=== PATIENT | female | born 1970 | race Caucasian/White ===

== ENCOUNTER 2017-01-17 20:40 | Emergency (ER) | payer OTHER ==
[~2017-01-17] VITALS: Ht 165.1 cm; Wt 88.5 kg
[~2017-01-17 20:40] MED LIST: AMLO10TA4 PO; ATEN50TA PO; INSU100V7; MEDR10TA PO; MONT10TA22 PO; PANT40TA4 PO; [UNRECOGNIZED DRUG - REMARK] PO
--- NOTE | 2017-01-17 21:35 | NUR ---
Patient discharged to home in stable conditon. Written and verbal after care instructions given. Patient verbalizes understanding of instructions.
== END 2017-01-17 21:36 | disposition home or self-care (01) ==
LOC: ER 20:43
DX: J32.9 Chronic sinusitis, unspecified (principal); J40 Bronchitis, not specified as acute or chronic; J45.909 Unspecified asthma, uncomplicated; I10 Essential (primary) hypertension; K21.9 Gastro-esophageal reflux disease without esophagitis; F41.9 Anxiety disorder, unspecified; E78.5 Hyperlipidemia, unspecified; F17.200 Nicotine dependence, unspecified, uncomplicated; E11.9 Type 2 diabetes mellitus without complications; Z88.6 Allergy status to analgesic agent; Z88.1 Allergy status to other antibiotic agents; Z79.4 Long term (current) use of insulin
CPT/HCPCS: 99283; A4663

== ENCOUNTER 2017-01-19 16:37 | Emergency (ER) | payer OTHER ==
[~2017-01-19] VITALS: Ht 165.1 cm; Wt 88.5 kg
[2017-01-19 17:08] LABS: *BLOOD, URINE 3+ (NEGATIVE); *COLOR,URINE AMBER (YELLOW); *KETONES,URINE NEGATIVE (NEGATIVE); *PROTEIN,URINE 1+ (NEGATIVE); *UROBILINOGEN,URINE 0.2 E.U./dl (NORMAL); LEUKOCYTE ESTERASE ,URINE NEGATIVE (NEGATIVE); NITRITE, URINE NEGATIVE (NEGATIVE); PH,URINE 5.5 (5.0-8.0); UGLUCOSE NEGATIVE (NEGATIVE)
[2017-01-19 17:21] LABS: *BILIRUBIN,URIN NEGATIVE (NEGATIVE); *CLARITY,URINE CLOUDY (CLEAR)
[2017-01-19 17:22] LABS: MUCUS,URINE MODERATE /LPF (0-FEW); RBC,URINE 80-100 /HPF (0-3); SQUAMOUS EPITHELIAL CELL,UR FEW /HPF (NONE SEEN)
--- NOTE | 2017-01-19 19:04 | NUR ---
SBAR REPORT TO PM SHIFT
[2017-01-19 19:32] LABS: BASOPHILS % (AUTO) 0.6 % (0.0-2.0); CALCIUM 8.1 mg/dL (8.5-10.1); EOSINOPHILS # (AUTO) 0.1 K/uL (0.0-0.7); EOSINOPHILS % (AUTO) 3.6 % (0.0-7.0); HEMOGLOBIN 12.1 g/dL (12.0-16.0); LYMPHOCYTES % (AUTO) 26.9 % (20.5-51.5); MEAN CORPUSCULAR HEMOGLOBIN 26.6 uug (27.0-31.0); MEAN CORPUSCULAR HGB CONC 34 g/dL (32.0-37.0); MEAN CORPUSCULAR VOLUME 79.4 fL (81.0-99.0); MONOCYTES # (AUTO) 0.3 K/uL (0.1-1.30); MONOCYTES % (AUTO) 8.8 % (0.0-11.0); NEUTROPHILS # (AUTO) 2.4 K/uL (1.8-8.9); NEUTROPHILS % (AUTO) 60.1 % (38.5-71.5); PLATELET COUNT (AUTO) 149 K/uL (150-450); POTASSIUM 3.8 mmol/L (3.5-5.1); RED BLOOD CELL COUNT(AUTO) 4.54 MIL/uL (4.20-5.40); WHITE BLOOD COUNT (AUTO) 3.8 K/uL (4.0-11.2)
--- NOTE | 2017-01-19 20:05 | NUR ---
Patient discharged to home in stable conditon. Written and verbal after care instructions provided, however patient refused written instructions of diagnosis. Patient verbalizes understanding of instructions. Perscription given to patient. Left unit at 2005
[2017-01-19 20:25] VITALS: BP 120/77
== END 2017-01-19 20:27 | disposition home or self-care (01) ==
LOC: ER 16:37
DX: N39.0 Urinary tract infection, site not specified (principal); J45.909 Unspecified asthma, uncomplicated; K21.9 Gastro-esophageal reflux disease without esophagitis; F41.9 Anxiety disorder, unspecified; E11.9 Type 2 diabetes mellitus without complications; E78.5 Hyperlipidemia, unspecified; I10 Essential (primary) hypertension; F17.200 Nicotine dependence, unspecified, uncomplicated; Z79.4 Long term (current) use of insulin; Z88.6 Allergy status to analgesic agent; Z88.1 Allergy status to other antibiotic agents
CPT/HCPCS: 36415; 85025; A4663

== ENCOUNTER 2017-04-21 17:02 | Emergency (ER) | payer OTHER ==
[~2017-04-21] VITALS: Ht 165.1 cm; Wt 90.7 kg
--- NOTE | 2017-04-21 18:36 | NUR ---
MD WALL AT BEDSIDE PERFORMING MSE.
--- NOTE | 2017-04-21 18:40 | NUR ---
Pt d/c br Dr. Bruno with verbal ACI.
== END 2017-04-21 18:41 | disposition home or self-care (01) ==
LOC: ER 17:08
DX: J32.9 Chronic sinusitis, unspecified (principal); R51 Headache; J45.909 Unspecified asthma, uncomplicated; E78.5 Hyperlipidemia, unspecified; K21.9 Gastro-esophageal reflux disease without esophagitis; E11.9 Type 2 diabetes mellitus without complications; I10 Essential (primary) hypertension; F41.9 Anxiety disorder, unspecified; Z90.49 Acquired absence of other specified parts of digestive tract; Z88.6 Allergy status to analgesic agent; Z88.1 Allergy status to other antibiotic agents; Z79.4 Long term (current) use of insulin
CPT/HCPCS: 99281; A4663

== ENCOUNTER 2017-05-07 15:12 | Emergency (ER) | payer OTHER ==
[~2017-05-07] VITALS: Ht 167.6 cm; Wt 90.7 kg
--- NOTE | 2017-05-07 15:34 | NUR ---
MED LIST REVIEWED WITH PATIENT. STATES SHE CANNOT RECALL DIABETIC MEDICATION AT THIS TIME, KNOWS THAT LANTUS HAD BEEN DISCONTINUED. PT STILL ALSO CANNOT REMEMBER HER PRN HEADACHE MEDICATION.
--- NOTE | 2017-05-07 16:21 | NUR ---
Patient discharged to home in stable conditon. Written and verbal after care instructions given. Patient verbalizes understanding of instructions.PT WALKS IN STEADY GAIT. NO SIGN OF DISTRESS.
[2017-05-07 16:22] VITALS: BP 110/75
== END 2017-05-07 16:25 | disposition home or self-care (01) ==
LOC: ER 15:12
DX: L55.0 Sunburn of first degree (principal); F41.9 Anxiety disorder, unspecified; E78.5 Hyperlipidemia, unspecified; I10 Essential (primary) hypertension; J45.909 Unspecified asthma, uncomplicated; E11.9 Type 2 diabetes mellitus without complications; F17.200 Nicotine dependence, unspecified, uncomplicated; K21.9 Gastro-esophageal reflux disease without esophagitis; Z90.49 Acquired absence of other specified parts of digestive tract; Z79.4 Long term (current) use of insulin; Z88.1 Allergy status to other antibiotic agents; Z88.6 Allergy status to analgesic agent
CPT/HCPCS: A4663

== ENCOUNTER 2017-05-19 20:44 | Emergency (ER) | payer OTHER ==
[~2017-05-19] VITALS: Ht 165.1 cm; Wt 92.5 kg
[~2017-05-19 20:44] MED LIST changes: -INSU100V7
[2017-05-19 21:55] LABS: *BILIRUBIN,URIN NEGATIVE (NEGATIVE); *BLOOD, URINE NEGATIVE (NEGATIVE); *COLOR,URINE YELLOW (YELLOW); *KETONES,URINE NEGATIVE (NEGATIVE); *PROTEIN,URINE NEGATIVE (NEGATIVE); NITRITE, URINE NEGATIVE (NEGATIVE); UGLUCOSE NEGATIVE (NEGATIVE)
[2017-05-19 22:02] LABS: *CLARITY,URINE SLIGHTLY HAZY (CLEAR); LEUKOCYTE ESTERASE ,URINE TRACE (NEGATIVE); RBC,URINE 0-3 /HPF (0-3)
[2017-05-19 22:03] LABS: BACTERIA,URINE FEW /HPF (NONE SEEN); SQUAMOUS EPITHELIAL CELL,UR MODERATE /HPF (NONE SEEN)
[2017-05-19 22:08] LABS: *URINE HCG, QUAL NEGATIVE (NEGATIVE)
[2017-05-19] MEDS ORDERED: NEOMY/BACITRA/POLYMYXIN B OINT UD PACKET TP ONE (23:45)
[2017-05-20 00:04] LABS: BILIRUBIN,DIRECT 0.1 mg/dL (0.0-0.2); BILIRUBIN,TOTAL 0.3 mg/dL (0.2-1.0); TOTAL PROTEIN, SERUM 7.3 g/dL (6.4-8.2)
[2017-05-20] MEDS ORDERED: NEOMY/BACITRA/POLYMYXIN B OINT UD PACKET TP ONE (00:15)
--- NOTE | 2017-05-20 00:44 | NUR ---
Patient discharged to home in stable conditon. Written and verbal after care instructions given. Patient verbalizes understanding of instructions.
== END 2017-05-20 00:46 | disposition home or self-care (01) ==
LOC: ER 20:44
DX: S09.90XA Unspecified injury of head, initial encounter (principal); M54.30 Sciatica, unspecified side; K59.00 Constipation, unspecified; I10 Essential (primary) hypertension; K21.9 Gastro-esophageal reflux disease without esophagitis; J45.909 Unspecified asthma, uncomplicated; F43.10 Post-traumatic stress disorder, unspecified; G89.29 Other chronic pain; M54.9 Dorsalgia, unspecified; N83.209 Unspecified ovarian cyst, unspecified side; Z90.49 Acquired absence of other specified parts of digestive tract; E11.9 Type 2 diabetes mellitus without complications; Z88.1 Allergy status to other antibiotic agents; Z88.6 Allergy status to analgesic agent; W22.8XXA Striking against or struck by other objects, initial encounter; Y93.89 Activity, other specified; Y92.9 Unspecified place or not applicable; Y99.9 Unspecified external cause status
CPT/HCPCS: 36415; 70450; 84703; A4663

== ENCOUNTER 2017-06-13 20:25 | Emergency (ER) | payer OTHER ==
[~2017-06-13] VITALS: Ht 165.1 cm; Wt 90.7 kg
[2017-06-13] MEDS ORDERED: FLUCONAZOLE 100 MG TABLET PO ONE (23:00)
--- NOTE | 2017-06-13 23:09 | NUR ---
Patient discharged to home in stable conditon. Written and verbal after care instructions given. Patient verbalizes understanding of instructions.
[2017-06-13] MEDS ORDERED: FLUCONAZOLE 100 MG TABLET ONE (23:18)
== END 2017-06-13 23:12 | disposition home or self-care (01) ==
LOC: ER 20:26
DX: M25.561 Pain in right knee (principal); I10 Essential (primary) hypertension; E11.9 Type 2 diabetes mellitus without complications; K21.9 Gastro-esophageal reflux disease without esophagitis; J45.909 Unspecified asthma, uncomplicated; G89.29 Other chronic pain; F43.10 Post-traumatic stress disorder, unspecified; F17.200 Nicotine dependence, unspecified, uncomplicated; Z88.1 Allergy status to other antibiotic agents; Z88.6 Allergy status to analgesic agent; Z90.49 Acquired absence of other specified parts of digestive tract; G43.909 Migraine, unspecified, not intractable, without status migrainosus
CPT/HCPCS: A4663

== ENCOUNTER 2017-07-25 16:04 | Emergency (ER) | payer OTHER ==
[~2017-07-25] VITALS: Ht 167.6 cm; Wt 92.1 kg
--- NOTE | 2017-07-25 17:31 | NUR ---
Pt c/o pain from uterine cysts, right knee injury, and CYR, all 10/10. Pt denies CP, SOB, dizziness, n/v, no other complaints, no distress noted.
--- NOTE | 2017-07-25 17:50 | NUR ---
Was giving pt RX and d/c instructions, pt became upset, refused RX and d/c paperwork and refused to sign.
== END 2017-07-25 17:50 | disposition home or self-care (01) ==
LOC: ER 16:07
DX: G89.29 Other chronic pain (principal); M25.561 Pain in right knee; I10 Essential (primary) hypertension; E11.9 Type 2 diabetes mellitus without complications; K21.9 Gastro-esophageal reflux disease without esophagitis; J45.909 Unspecified asthma, uncomplicated; F17.200 Nicotine dependence, unspecified, uncomplicated; D25.9 Leiomyoma of uterus, unspecified; N93.8 Other specified abnormal uterine and vaginal bleeding
CPT/HCPCS: A4663

== ENCOUNTER 2018-04-07 01:02 | Emergency (ER) | payer OTHER ==
[~2018-04-07] VITALS: Ht 167.6 cm; Wt 92.5 kg
--- NOTE | 2018-04-07 01:58 | NUR ---
DR JANET PERALTA MD AT BEDSIDE FOR MSE.
[2018-04-07] MEDS ORDERED: LIDOCAINE HCL 1% 20 ML VIAL IJ ONE (02:00)
[2018-04-07] MEDS ORDERED: NEOMY/BACITRA/POLYMYXIN B OINT UD PACKET TP ONE ×2 (02:27→02:30)
[2018-04-07] MEDS ORDERED: SULFAMETH/TRIMETH 800/160 MG TABLET PO ONE (02:30)
[2018-04-07] MEDS ORDERED: SULFAMETH/TRIMETH 800/160 MG TABLET ONE (02:48)
--- NOTE | 2018-04-07 02:53 | NUR ---
Patient discharged to home in stable conditon. Written and verbal after care instructions given. Patient verbalizes understanding of instructions. Pt accompanied by . No distress noted. Pt took all personal belongings.
[2018-04-07 02:54] VITALS: BP 124/72
== END 2018-04-07 02:54 | disposition home or self-care (01) ==
LOC: ER 01:06
DX: K65.1 Peritoneal abscess (principal); I10 Essential (primary) hypertension; J45.909 Unspecified asthma, uncomplicated; K21.9 Gastro-esophageal reflux disease without esophagitis; F17.210 Nicotine dependence, cigarettes, uncomplicated; Z88.1 Allergy status to other antibiotic agents; Z88.5 Allergy status to narcotic agent; Z79.899 Other long term (current) drug therapy
CPT/HCPCS: 10060; 99283; A4663; J3490

== ENCOUNTER 2018-05-14 16:15 | Emergency (ER) | payer OTHER ==
[~2018-05-14] VITALS: Ht 167.6 cm; Wt 93.4 kg
== END 2018-05-14 17:00 | disposition home or self-care (01) ==
LOC: ER 16:15
DX: S70.362A Insect bite (nonvenomous), left thigh, initial encounter (principal); S30.861A Insect bite (nonvenomous) of abdominal wall, initial encounter; N76.4 Abscess of vulva; I10 Essential (primary) hypertension; J45.909 Unspecified asthma, uncomplicated; K21.9 Gastro-esophageal reflux disease without esophagitis; F17.200 Nicotine dependence, unspecified, uncomplicated; Z90.89 Acquired absence of other organs; Z88.1 Allergy status to other antibiotic agents; Z88.5 Allergy status to narcotic agent; W57.XXXA Bitten or stung by nonvenomous insect and other nonvenomous arthropods, initial encounter; Y93.89 Activity, other specified; Y92.89 Other specified places as the place of occurrence of the external cause; Y99.8 Other external cause status
CPT/HCPCS: A4663

== ENCOUNTER 2018-08-04 19:15 | Emergency (ER) | payer OTHER ==
[~2018-08-04] VITALS: Ht 165.1 cm; Wt 92.5 kg
[2018-08-04] MEDS ORDERED: [UNRECOGNIZED DRUG - SUPPLY] (19:29)
[2018-08-04] MEDS ORDERED: ONDANSETRON HCL 4 MG TABLET PO (19:29)
[2018-08-04] MEDS ORDERED: HYDROCODONE-ACETAMIN 10-325 MG PO (19:29)
[2018-08-04] MEDS ORDERED: KETOCONAZOLE 2% SHAMPOO (19:29)
[2018-08-04] MEDS ORDERED: INSULIN ISOPHANE 100 UNIT/ML (19:29)
--- NOTE | 2018-08-04 19:34 | NUR ---
DR. CAITLIN PERALTA MD AT BEDSIDE FOR MSE.
[2018-08-04 20:25] LABS: BASOPHILS # (AUTO) 0.1 K/uL (0.0-8.0); EOSINOPHILS # (AUTO) 0.2 K/uL (0.0-0.7); EOSINOPHILS % (AUTO) 2.4 % (0.0-7.0); HEMATOCRIT 37.6 % (31.2-41.9); HEMOGLOBIN 12.4 g/dL (10.9-14.3); LYMPHOCYTES # (AUTO) 1.7 K/uL (20.0-40.0); LYMPHOCYTES % (AUTO) 21.5 % (20.5-51.5); MEAN CORPUSCULAR HEMOGLOBIN 28.3 uug (24.7-32.8); MEAN CORPUSCULAR HGB CONC 33 g/dL (32.3-35.6); MONOCYTES # (AUTO) 0.5 K/uL (2.0-10.0); MONOCYTES % (AUTO) 6.5 % (0.0-11.0); NEUTROPHILS # (AUTO) 5.5 K/uL (1.8-8.9); NEUTROPHILS % (AUTO) 68.6 % (38.5-71.5); PLATELET COUNT (AUTO) 183 K/uL (179-408); RED BLOOD CELL COUNT(AUTO) 4.37 MIL/uL (3.63-4.92); WHITE BLOOD COUNT (AUTO) 8.1 K/uL (3.8-11.8)
[2018-08-04 20:35] LABS: BILIRUBIN,DIRECT 0.1 mg/dL (0.0-0.2); BILIRUBIN,TOTAL 0.4 mg/dL (0.2-1.0); CREATININE 0.8 mg/dL (0.6-1.3); POTASSIUM 4.2 mmol/L (3.5-5.1)
--- NOTE | 2018-08-04 21:01 | NUR ---
PT WENT DOWN TO RADIOLOGY DEPT FOR CT SCAN.
[2018-08-04 21:04] LABS: *BILIRUBIN,URIN NEGATIVE (NEGATIVE); *BLOOD, URINE Trace-intact (NEGATIVE); *COLOR,URINE YELLOW (YELLOW); *KETONES,URINE NEGATIVE (NEGATIVE); *PROTEIN,URINE NEGATIVE (NEGATIVE); LEUKOCYTE ESTERASE ,URINE NEGATIVE (NEGATIVE); NITRITE, URINE NEGATIVE (NEGATIVE); UGLUCOSE 1+ (NEGATIVE)
[2018-08-04 21:11] LABS: *CLARITY,URINE HAZY (CLEAR)
[2018-08-04] MEDS ORDERED: NORMAL SALINE FLUSH 10 ML DISP.SYRIN ONE (21:11)
[2018-08-04] MEDS ORDERED: IV NORMAL SALINE 250 ML IV ONE (21:11)
[2018-08-04] MEDS ORDERED: SWABABLE VALVE TRANSFER SET EA MC ONE (21:11)
[2018-08-04] MEDS ORDERED: IOHEXOL 300MG/ML 100 ML INFUS..BTL ONE (21:11)
[2018-08-04 21:14] LABS: SQUAMOUS EPITHELIAL CELL,UR MODERATE /HPF (NONE SEEN); WBC,URINE 0-3 /HPF (0-3)
[2018-08-04 21:15] LABS: MUCUS,URINE MODERATE /LPF (0-FEW); URINE AMORPHOUS PHOSPHATES MODERATE /HPF
--- NOTE | 2018-08-04 21:34 | NUR ---
PT BACK FROM CT SCAN. NAD NOTED.
[2018-08-04] MEDS ORDERED: FLUCONAZOLE 100 MG TABLET PO ONE (22:00)
[2018-08-04] MEDS ORDERED: FLUCONAZOLE 100 MG TABLET ONE (22:07)
--- NOTE | 2018-08-04 22:15 | NUR ---
DR. CAITLIN PERALTA MD AT BEDSIDE FOR UPDATE.
[2018-08-04] MEDS ORDERED: PIPERACILLIN/TAZOBACTAM/D5W 50 ML IV ONE (22:20)
[2018-08-04] MEDS ORDERED: PIPERACILLIN SODIUM/TAZOBACTAM 3.375 G in IV DEXTROSE 5% 50 ML IV ONE (22:30)
--- NOTE | 2018-08-04 23:02 | NUR ---
Patient does not wish to proceed with medical care recommended by Dr. Arizmendi. Patient given information related to possible complications, up to and including , which could occur as a result of leaving the hospital at this time. Patient verbalizes understanding of risks involved due to leaving against medical advice. Patient has signed AMA form.
--- NOTE | 2018-08-04 23:02 | NUR ---
IV removed. Catheter intact and site benign. Pressure and 4x4 gauze applied to site. No bleeding noted.
[2018-08-04 23:07] VITALS: BP 111/76
[2018-08-05] MEDS ORDERED: ESZO2TAB22 PO (02:54)
[2018-08-06] MEDS ORDERED: METR500T4 PO (14:57)
[2018-08-06] MEDS ORDERED: ATOR20TA PO (14:57)
[2018-08-06] MEDS ORDERED: HYDR-3326 PO (14:57)
[2018-08-06] MEDS ORDERED: LACT1CAP57 PO (14:57)
[2018-08-06] MEDS ORDERED: LEVO500T2 PO (14:57)
== END 2018-08-04 23:08 | disposition home or self-care (01) ==
LOC: ER 19:19
DX: T81.41XA Infection following a procedure, superficial incisional surgical site, initial encounter (principal); L02.211 Cutaneous abscess of abdominal wall; Z71.6 Tobacco abuse counseling; I10 Essential (primary) hypertension; J45.909 Unspecified asthma, uncomplicated; K21.9 Gastro-esophageal reflux disease without esophagitis; E11.9 Type 2 diabetes mellitus without complications; F17.200 Nicotine dependence, unspecified, uncomplicated; Z88.1 Allergy status to other antibiotic agents; Z88.5 Allergy status to narcotic agent; Z90.89 Acquired absence of other organs; Z90.710 Acquired absence of both cervix and uterus
CPT/HCPCS: 36415; 74177; 80048; 80076; 81001; 83690; 85025; 96365; 99285; 99406; A4663; J2543; J3490; J7050; Q9967

== ENCOUNTER 2018-08-05 02:21 | Inpatient (IN) | payer OTHER ==
[~2018-08-05] VITALS: Ht 165.1 cm; Wt 92.5 kg
[~2018-08-05 02:21] MED LIST changes: +HYDROCODONE-ACETAMIN 10-325 MG PO; +INSULIN ISOPHANE 100 UNIT/ML; +KETOCONAZOLE 2% SHAMPOO; +ONDANSETRON HCL 4 MG TABLET PO; +[UNRECOGNIZED DRUG - SUPPLY]
--- NOTE | 2018-08-05 02:41 | NUR ---
Pt ambulates to ER with c/o incision site pain from postop hysterectomy 6 days ago. Pt was seen in this ER earlier and left AMA. Pt has 24 rob noted on incision site. No signs of infection are present. VSS.
[2018-08-05] MEDS ORDERED: ESZO2TAB22 PO (02:54)
--- NOTE | 2018-08-05 03:09 | NUR ---
Pt. admitted to Med/Surg, under care of Ashley Siddiqi NP. Diagnosis: Postoperative Intra-Abdominal Abscess. Belongs List completed. MRSA swab done. Report given to Vanessa THORNTON.
--- NOTE | 2018-08-05 03:30 | NUR ---
Received pt to [facility]. VSS. Upon walking into the room and assessing patient, patient states "I hope you for dilaudid ordered for me." Pt states her pain is "15/10" in the abdominal area and had been like that for about 2 days. I orient patient to unit and use of call light. Patient is ambulatory and can walk to the bathroom independently. Wound photos taken and placed in chart. paged SERGIO Siddiqi for admission orders. Addendum: 08/05/18 at 0635 by JEMMA NAGEL RN Belongings list completed. Patient credit card and lambert placed in envelope and placed in safe. Home meds sent to pharmacy. Patient states "I hope to go home tonight"
[2018-08-05 03:35] VITALS: BP 128/72
[2018-08-05] MEDS ORDERED: ZOLPIDEM 5 MG TABLET PO PRN (06:00)
[2018-08-05] MEDS ORDERED: Z GUARD REMEDY PASTE 57 GM TUBE TOP PRN (06:00)
[2018-08-05] MEDS ORDERED: MAGNESIUM HYDROXIDE 30 ML LIQUID UDC PO PRN (06:00)
[2018-08-05] MEDS ORDERED: ACETAMINOPHEN 325 MG TABLET PO PRN (06:00)
--- NOTE | 2018-08-05 06:32 | NUR ---
Received admission orders for SERGIO Siddiqi. D/C'd order of Lovenox as patient is 6 days post-op and ambulatory. Patient states she cannot have blood-thinners due to her subdural hematoma. Patient is refusing DVT pumps, states she doesn't like them. Patient agrees she will get up and walk around today. "Patient also states, I'm going home tonight anyways." Patient slept through the night, no pain medication was given last night.
--- NOTE | 2018-08-05 07:05 | NUR ---
RECEIVED REPORT FROM SASH CLAMP OPERATOR NRUSE, PATIENT IN BED, AWAKE COMPLAINS OF PAIN BUT REFUSES MEDS. CURRENTLY IN BED, BED IN LOW POSITION, SIDE RAILS UP X2.
[2018-08-05] MEDS: IV NS 1000 ML 1,000 ML IV PRN ×2 (07:48→21:27)
[2018-08-05] MEDS: PIPERACILLIN/TAZOBACTAM/D5W 3.375 G in PREMIXED 1 EACH IV SCH ×3 (08:28→21:27)
[2018-08-05] MEDS ORDERED: ENOXAPARIN SODIUM 40 MG/0.4 ML DISP.SYRIN SQ SCH (09:00)
[2018-08-05 11:12] VITALS: BP 152/86
[2018-08-05] MEDS ORDERED: INSULIN REGULAR, HUMAN 300 UNIT/3 ML VIAL SQ PRN (11:15)
[2018-08-05] MEDS ORDERED: DEXTROSE 50% 50 ML DISP.SYRIN IV PRN (11:15)
[2018-08-05] MEDS: PANTOPRAZOLE SODIUM 40 MG VIAL IV SCH (11:46)
[2018-08-05] MEDS: HYDROCODONE/APAP 5-325MG TABLET PO PRN ×2 (11:50→20:44)
[2018-08-05] MEDS: ONDANSETRON 4 MG/2 ML VIAL IV PRN ×2 (11:50→23:56)
[2018-08-05] MEDS: BLOOD SUGAR DIAGNOSTIC 1 EACH STRIP VI SCH ×3 (11:56→20:43)
--- NOTE | 2018-08-05 12:09 | NUR ---
patient tolerated clear liquids, advancing diet to full liquids.
[2018-08-05 13:59] LABS: BASOPHILS % (AUTO) 0.3 % (0.0-2.0); EOSINOPHILS # (AUTO) 0.2 K/uL (0.0-0.7); EOSINOPHILS % (AUTO) 2.1 % (0.0-7.0); HEMATOCRIT 37.6 % (31.2-41.9); HEMOGLOBIN 12.4 g/dL (10.9-14.3); LYMPHOCYTES # (AUTO) 1.4 K/uL (20.0-40.0); LYMPHOCYTES % (AUTO) 15.9 % (20.5-51.5); MEAN CORPUSCULAR HEMOGLOBIN 28.2 uug (24.7-32.8); MEAN CORPUSCULAR HGB CONC 33 g/dL (32.3-35.6); MEAN CORPUSCULAR VOLUME 85.6 fL (75.5-95.3); MONOCYTES # (AUTO) 0.5 K/uL (2.0-10.0); MONOCYTES % (AUTO) 5.8 % (0.0-11.0); NEUTROPHILS # (AUTO) 6.5 K/uL (1.8-8.9); NEUTROPHILS % (AUTO) 75.9 % (38.5-71.5); PLATELET COUNT (AUTO) 175 K/uL (179-408); RED BLOOD CELL COUNT(AUTO) 4.39 MIL/uL (3.63-4.92); WHITE BLOOD COUNT (AUTO) 8.5 K/uL (3.8-11.8)
[2018-08-05 14:04] LABS: BILIRUBIN,TOTAL 0.6 mg/dL (0.2-1.0); CREATININE 0.8 mg/dL (0.6-1.3); MAGNESIUM 1.8 mg/dL (1.8-2.4); PHOSPHOROUS 3.9 mg/dL (2.5-4.9); POTASSIUM 4.1 mmol/L (3.5-5.1); TOTAL PROTEIN, SERUM 6.8 g/dL (6.4-8.2)
[2018-08-05] MEDS ORDERED: HYDROMORPHONE 1 MG/1 ML DISP.SYRIN IV PRN (14:30)
[2018-08-05 15:01] LABS: *BILIRUBIN,URIN NEGATIVE (NEGATIVE); *BLOOD, URINE 1+ (NEGATIVE); *COLOR,URINE YELLOW (YELLOW); *KETONES,URINE NEGATIVE (NEGATIVE); *PROTEIN,URINE NEGATIVE (NEGATIVE); LEUKOCYTE ESTERASE ,URINE NEGATIVE (NEGATIVE); NITRITE, URINE NEGATIVE (NEGATIVE); PH,URINE 7.5 (5.0-8.0); UGLUCOSE NEGATIVE (NEGATIVE)
[2018-08-05] MEDS: MONTELUKAST SODIUM 10 MG TABLET PO SCH (15:05)
[2018-08-05] MEDS: AMLODIPINE 10 MG TABLET PO SCH (15:05)
[2018-08-05 15:29] VITALS: BP 140/70
[2018-08-05] MEDS: glipiZIDE 5 MG TABLET PO SCH ×2 (16:30→16:58)
[2018-08-05 17:37] LABS: *CLARITY,URINE HAZY (CLEAR)
[2018-08-05 17:39] LABS: MUCUS,URINE FEW /LPF (0-FEW); SQUAMOUS EPITHELIAL CELL,UR MODERATE /HPF (NONE SEEN)
--- NOTE | 2018-08-05 18:28 | NUR ---
Patient has not been cooperative with care, patient refusing medications, and non-compliant with diet. Currently patient in bed, no distress noted at this time, bed in low position, side rails up x2.
[2018-08-05 20:00] VITALS: BP 142/82
--- NOTE | 2018-08-05 20:00 | NUR ---
Received pt alert and oriented x 4, in no acute distress. Pt aware of plan of care. Safe environment implemented. Call light within reach.
--- NOTE | 2018-08-05 21:00 | NUR ---
Pain management provided as ordered. Dr. Reynolds in room for consult.
--- NOTE | 2018-08-05 22:00 | NUR ---
Received patient lying in bed. AAOX4. In no acute distress. Denies any pain or SOB at this time. IV siteon right hand intact and patent. IVF infusing. Was seen by Dr Priya lane. Patient for US guided drainage/aspiration tomorrow. NPO status not needed per MD. Will have consent form sign. Safety measure initiated and call arango within reach.
--- NOTE | 2018-08-05 23:00 | NUR ---
Patient signed informed consent for US guided drainage/aspiration procedure for tomorrow.
--- NOTE | 2018-08-06 02:28 | NUR ---
CHARGE NURSE VERIFIED WITH RADIOLOGY THAT PT NEEDS TO BE ON NPO STATUS FOR PROCEDURE TODAY. PER PATIENT SHE HAS NOT HAD ANY FOOD OR FLUID INTAKE SINCE 12 MIDNIGHT.
[2018-08-06 04:00] VITALS: BP 128/67
[2018-08-06] MEDS: PIPERACILLIN/TAZOBACTAM/D5W 3.375 G in PREMIXED 1 EACH IV SCH ×2 (05:00→13:52)
--- NOTE | 2018-08-06 06:04 | NUR ---
AAOX4. In no acute distress. Denies any pain or SOB. IV site on right hand intact and patent. IVF infusing. No adverse reaction noted from IV ABX. NPO status. Needs assessed and attended to. Safety measure maintained and call arango within reach.
[2018-08-06] MEDS: glipiZIDE 5 MG TABLET PO SCH ×2 (06:30→16:06)
[2018-08-06] MEDS: BLOOD SUGAR DIAGNOSTIC 1 EACH STRIP VI SCH ×3 (06:30→16:06)
[2018-08-06 07:15] LABS: BASOPHILS % (AUTO) 0.2 % (0.0-2.0); EOSINOPHILS # (AUTO) 0.2 K/uL (0.0-0.7); EOSINOPHILS % (AUTO) 2.6 % (0.0-7.0); HEMATOCRIT 36.9 % (31.2-41.9); HEMOGLOBIN 12.2 g/dL (10.9-14.3); LYMPHOCYTES # (AUTO) 1.8 K/uL (20.0-40.0); LYMPHOCYTES % (AUTO) 20.6 % (20.5-51.5); MEAN CORPUSCULAR HEMOGLOBIN 28.3 uug (24.7-32.8); MEAN CORPUSCULAR HGB CONC 33 g/dL (32.3-35.6); MEAN CORPUSCULAR VOLUME 85.9 fL (75.5-95.3); MONOCYTES # (AUTO) 0.4 K/uL (2.0-10.0); MONOCYTES % (AUTO) 4.9 % (0.0-11.0); NEUTROPHILS # (AUTO) 6.1 K/uL (1.8-8.9); NEUTROPHILS % (AUTO) 71.7 % (38.5-71.5); PLATELET COUNT (AUTO) 182 K/uL (179-408); WHITE BLOOD COUNT (AUTO) 8.5 K/uL (3.8-11.8)
[2018-08-06] MEDS: PANTOPRAZOLE SODIUM 40 MG VIAL IV SCH (08:29)
[2018-08-06 08:32] LABS: CREATININE 0.9 mg/dL (0.6-1.3); MAGNESIUM 1.8 mg/dL (1.8-2.4); PHOSPHOROUS 3.7 mg/dL (2.5-4.9); POTASSIUM 3.8 mmol/L (3.5-5.1)
[2018-08-06 08:49] LABS: THYROID STIMULATING HORMONE 1.876 mIU/mL (0.358-3.740)
[2018-08-06] MEDS ORDERED: ATENOLOL 50 MG TABLET PO SCH (09:00)
[2018-08-06] MEDS: AMLODIPINE 10 MG TABLET PO SCH (10:55)
[2018-08-06] MEDS: MONTELUKAST SODIUM 10 MG TABLET PO SCH (10:55)
[2018-08-06 11:13] VITALS: BP 146/84
[2018-08-06] MEDS: HYDROCODONE/APAP 5-325MG TABLET PO PRN (12:56)
[2018-08-06] MEDS ORDERED: METRONIDAZOLE 500 MG TABLET PO SCH (14:45)
[2018-08-06] MEDS ORDERED: LEVOFLOXACIN 500 MG TABLET PO SCH (14:45)
[2018-08-06] MEDS ORDERED: LACTOBACILLUS RHAMNOSUS GG 1 EACH CAPSULE PO SCH (14:45)
[2018-08-06] MEDS ORDERED: ATOR20TA PO (14:57)
[2018-08-06] MEDS ORDERED: LEVO500T2 PO (14:57)
[2018-08-06] MEDS ORDERED: LACT1CAP57 PO (14:57)
[2018-08-06] MEDS ORDERED: METR500T4 PO (14:57)
[2018-08-06] MEDS ORDERED: HYDR-3326 PO (14:57)
[2018-08-06 15:16] VITALS: BP 140/80
--- NOTE | 2018-08-06 17:20 | NUR ---
D/C ORDERS RECEIVED NOTED AND CARRIED OUT,D/C HEPLOCK PER MD ORDERS,D/C INSTRUCTION AND EDUCATION GIVEN TO THE PT,PT SAID SHE WILL FOLLOW UP WITH HER PCP ,PT LEFT THE FACILITY VIA PRIVATE CAR IN STABLE CONDITION
[2018-08-06] MEDS ORDERED: ATORVASTATIN 20 MG TABLET PO SCH (21:00)
[2018-08-07] MEDS ORDERED: PANTOPRAZOLE SODIUM 40 MG TABLET.DR PO SCH (07:00)
== END 2018-08-06 17:19 | disposition home or self-care (01) | DRG 721 ==
LOC: ER 02:25 → MED 03:17
PROVIDERS: ADMIT Nurse Practitioner Acute Care; ATTEND Nurse Practitioner Acute Care
PROC: 0WJF3ZZ Inspection of Abdominal Wall, Percutaneous Approach (ICD-10-PCS; principal; 2018-08-05)
DX: T81.42XA Infection following a procedure, deep incisional surgical site, initial encounter (principal); D69.6 Thrombocytopenia, unspecified; L02.211 Cutaneous abscess of abdominal wall; M96.843 Postprocedural seroma of a musculoskeletal structure following other procedure; K74.60 Unspecified cirrhosis of liver; E11.65 Type 2 diabetes mellitus with hyperglycemia; N28.1 Cyst of kidney, acquired; Z90.710 Acquired absence of both cervix and uterus; Z90.49 Acquired absence of other specified parts of digestive tract; Z87.442 Personal history of urinary calculi; Z87.891 Personal history of nicotine dependence; K76.0 Fatty (change of) liver, not elsewhere classified; J45.909 Unspecified asthma, uncomplicated; K21.9 Gastro-esophageal reflux disease without esophagitis; G89.29 Other chronic pain; M54.9 Dorsalgia, unspecified; F43.10 Post-traumatic stress disorder, unspecified; E78.5 Hyperlipidemia, unspecified; I10 Essential (primary) hypertension; E66.9 Obesity, unspecified; Z68.33 Body mass index [BMI] 33.0-33.9, adult; Z87.01 Personal history of pneumonia (recurrent); Z87.820 Personal history of traumatic brain injury; Y83.6 Removal of other organ (partial) (total) as the cause of abnormal reaction of the patient, or of later complication, without mention of misadventure at the time of the procedure; Y92.238 Other place in hospital as the place of occurrence of the external cause
CPT/HCPCS: 36415; 71045; 76770; 83735; 84100; 84443; 85025; 87086; A4663; C9113; G0378; J1815; J2405; J2543; J7030

== ENCOUNTER 2018-11-23 16:56 | Emergency (ER) | payer OTHER ==
[~2018-11-23] VITALS: Ht 167.6 cm; Wt 97.7 kg
[~2018-11-23 16:56] MED LIST changes: +ATOR20TA PO; +ESZO2TAB22 PO; +HYDR-3326 PO; -HYDROCODONE-ACETAMIN 10-325 MG PO; -INSULIN ISOPHANE 100 UNIT/ML; +INSULIN ISOPHANE 100 UNIT/ML SQ; -KETOCONAZOLE 2% SHAMPOO; +LACT1CAP57 PO; +LEVO500T2 PO; +METR-147 PO; -ONDANSETRON HCL 4 MG TABLET PO; -[UNRECOGNIZED DRUG - REMARK] PO; -[UNRECOGNIZED DRUG - SUPPLY]
--- NOTE | 2018-11-23 17:15 | NUR ---
PT A/OX4, PRESENTS TO THE ER C/O ABD PAIN AND DISTENSION SINCE SHE HAD HER HYSTERECTOMY IN JUL 2018. ABD IS VISIBLY DISTENDED, BOWEL SOUNDS ACTIVE, ABD FIRM ON PALPATION. PT DENIES C/P, SOB, N/V/D, DIZZINESS, HEADACHE. ER MD AT BEDSIDE FOR MSE.
--- NOTE | 2018-11-23 17:42 | NUR ---
PT TAKEN TO RADIOLOGY FOR CT SCAN.
[2018-11-23 17:43] LABS: BASOPHILS # (AUTO) 0.1 K/uL (0.0-8.0); BASOPHILS % (AUTO) 0.6 % (0.0-2.0); EOSINOPHILS # (AUTO) 0.3 K/uL (0.0-0.7); EOSINOPHILS % (AUTO) 2.8 % (0.0-7.0); HEMATOCRIT 43.1 % (31.2-41.9); HEMOGLOBIN 14.3 g/dL (10.9-14.3); LYMPHOCYTES # (AUTO) 1.7 K/uL (20.0-40.0); LYMPHOCYTES % (AUTO) 18.7 % (20.5-51.5); MEAN CORPUSCULAR HEMOGLOBIN 27.6 uug (24.7-32.8); MEAN CORPUSCULAR HGB CONC 33 g/dL (32.3-35.6); MEAN CORPUSCULAR VOLUME 83.3 fL (75.5-95.3); MONOCYTES # (AUTO) 0.5 K/uL (2.0-10.0); MONOCYTES % (AUTO) 5.9 % (0.0-11.0); NEUTROPHILS # (AUTO) 6.4 K/uL (1.8-8.9); PLATELET COUNT (AUTO) 123 K/uL (179-408); RED BLOOD CELL COUNT(AUTO) 5.17 MIL/uL (3.63-4.92); WHITE BLOOD COUNT (AUTO) 8.9 K/uL (3.8-11.8)
[2018-11-23 17:47] LABS: CREATININE 0.7 mg/dL (0.6-1.3); POTASSIUM 3.7 mmol/L (3.5-5.1)
[2018-11-23 17:50] LABS: *BILIRUBIN,URIN NEGATIVE (NEGATIVE); *BLOOD, URINE NEGATIVE (NEGATIVE); *COLOR,URINE YELLOW (YELLOW); *KETONES,URINE NEGATIVE (NEGATIVE); *UROBILINOGEN,URINE 0.2 E.U./dl (NORMAL); LEUKOCYTE ESTERASE ,URINE NEGATIVE (NEGATIVE); NITRITE, URINE NEGATIVE (NEGATIVE); UGLUCOSE NEGATIVE (NEGATIVE)
--- NOTE | 2018-11-23 17:50 | NUR ---
PT BACK IN ER FROM RADIOLOGY.
[2018-11-23] MEDS: IV NORMAL SALINE 1000 ML BAG IV ONE (17:52)
[2018-11-23 17:54] LABS: BILIRUBIN,DIRECT 0.1 mg/dL (0.0-0.2); BILIRUBIN,TOTAL 0.4 mg/dL (0.2-1.0)
[2018-11-23 18:03] LABS: *CLARITY,URINE SLIGHTLY HAZY (CLEAR)
[2018-11-23 18:11] LABS: BACTERIA,URINE FEW /HPF (NONE SEEN); MUCUS,URINE MODERATE /LPF (0-FEW); RBC,URINE 0-3 /HPF (0-3); SQUAMOUS EPITHELIAL CELL,UR MODERATE /HPF (NONE SEEN); WBC,URINE 0-3 /HPF (0-3)
--- NOTE | 2018-11-23 18:42 | NUR ---
Lesly zayas in [facility] - 11/23/18 at 1846 by MACK RT CALLED FOR OCTAVIO.
--- NOTE | 2018-11-23 19:01 | NUR ---
SHIFT REPORT GIVEN TO NORBERTO TAN.
--- NOTE | 2018-11-23 20:20 | NUR ---
Patient discharged to home in stable conditon. Written and verbal after care instructions given. Patient verbalizes understanding of instructions.
== END 2018-11-23 20:21 | disposition home or self-care (01) ==
LOC: ER 16:58
DX: R10.31 Right lower quadrant pain (principal); R10.32 Left lower quadrant pain; I10 Essential (primary) hypertension; J45.909 Unspecified asthma, uncomplicated; K21.9 Gastro-esophageal reflux disease without esophagitis; E11.9 Type 2 diabetes mellitus without complications; G89.29 Other chronic pain; M54.9 Dorsalgia, unspecified; F17.200 Nicotine dependence, unspecified, uncomplicated; Z90.49 Acquired absence of other specified parts of digestive tract; Z90.89 Acquired absence of other organs; Z90.710 Acquired absence of both cervix and uterus; Z88.1 Allergy status to other antibiotic agents; Z88.5 Allergy status to narcotic agent; Z79.899 Other long term (current) drug therapy; Z79.2 Long term (current) use of antibiotics
CPT/HCPCS: 36415; 70030-TC; 71045; 83690; 85025; 85730; 87086; 93005; A4663; J7030

== ENCOUNTER 2018-12-21 16:59 | Emergency (ER) | payer OTHER ==
[~2018-12-21] VITALS: Ht 165.1 cm; Wt 96.2 kg
[~2018-12-21 16:59] MED LIST changes: -ATOR20TA PO; -HYDR-3326 PO; -LACT1CAP57 PO; -LEVO500T2 PO; -MEDR10TA PO; -METR-147 PO
--- NOTE | 2018-12-21 18:15 | NUR ---
PT SELF-AMBULATED TO ROOM 04B.
--- NOTE | 2018-12-21 18:16 | NUR ---
PT A/OX4, PRESENTS TO THE ER C/O ABD PAIN SINCE JUL 2018. PT STATES "I WANT MY LIVER ENZYMES RECHECKED". PT REPORTS ABD PAIN NON-PROVOKED, UNABLE TO DESCRIBE QUALITY OF PAIN, DOES NOT RADIATE, 10/10, CONSTANT. VSS. PT DOES NOT APPEAR TO BE IN ANY APPARENT DISTRESS. PT DENIES C/P, SOB, N/V/D, DIZZINESS, HEADACHE.
--- NOTE | 2018-12-21 18:49 | NUR ---
INSTANT POTATO PROCESSOR AT BEDSIDE.
[2018-12-21 18:59] LABS: BASOPHILS # (AUTO) 0.1 K/uL (0.0-8.0); BASOPHILS % (AUTO) 0.8 % (0.0-2.0); EOSINOPHILS # (AUTO) 0.3 K/uL (0.0-0.7); EOSINOPHILS % (AUTO) 3.2 % (0.0-7.0); HEMATOCRIT 44.4 % (31.2-41.9); HEMOGLOBIN 14.7 g/dL (10.9-14.3); LYMPHOCYTES # (AUTO) 1.7 K/uL (20.0-40.0); MEAN CORPUSCULAR HEMOGLOBIN 27.6 uug (24.7-32.8); MEAN CORPUSCULAR HGB CONC 33 g/dL (32.3-35.6); MEAN CORPUSCULAR VOLUME 83.6 fL (75.5-95.3); MONOCYTES # (AUTO) 0.5 K/uL (2.0-10.0); MONOCYTES % (AUTO) 6.1 % (0.0-11.0); NEUTROPHILS # (AUTO) 6.4 K/uL (1.8-8.9); NEUTROPHILS % (AUTO) 70.9 % (38.5-71.5); PLATELET COUNT (AUTO) 119 K/uL (179-408); RED BLOOD CELL COUNT(AUTO) 5.31 MIL/uL (3.63-4.92)
--- NOTE | 2018-12-21 19:08 | NUR ---
SHIFT REPORT GIVEN TO ALO THORNTON.
[2018-12-21 19:12] LABS: BILIRUBIN,DIRECT 0.2 mg/dL (0.0-0.2); BILIRUBIN,TOTAL 0.5 mg/dL (0.2-1.0); CREATININE 0.8 mg/dL (0.6-1.3); POTASSIUM 3.6 mmol/L (3.5-5.1); TOTAL PROTEIN, SERUM 7.9 g/dL (6.4-8.2)
--- NOTE | 2018-12-21 19:12 | NUR ---
Recieved report from Wilmer THORNTON, assumed care of pt.,
--- NOTE | 2018-12-21 19:58 | NUR ---
Patient discharged to home in stable conditon. Written and verbal after care instructions given. Patient verbalizes understanding of instructions.
== END 2018-12-21 19:59 | disposition home or self-care (01) ==
LOC: ER 17:11
DX: R10.11 Right upper quadrant pain (principal); I10 Essential (primary) hypertension; J45.909 Unspecified asthma, uncomplicated; K21.9 Gastro-esophageal reflux disease without esophagitis; E11.9 Type 2 diabetes mellitus without complications; G89.29 Other chronic pain; M54.9 Dorsalgia, unspecified; F17.290 Nicotine dependence, other tobacco product, uncomplicated; Z71.6 Tobacco abuse counseling; Z88.1 Allergy status to other antibiotic agents; Z88.5 Allergy status to narcotic agent; Z90.49 Acquired absence of other specified parts of digestive tract; Z90.710 Acquired absence of both cervix and uterus; Z79.899 Other long term (current) drug therapy
CPT/HCPCS: 36415; 83690; 85025; A4663

== ENCOUNTER 2019-08-25 03:38 | Emergency (ER) | payer OTHER ==
[~2019-08-25] VITALS: Ht 167.6 cm; Wt 99.8 kg
--- NOTE | 2019-08-25 03:53 | NUR ---
Dr. Arizmendi at bedside for MSE.
[2019-08-25] MEDS ORDERED: HYDROCODONE/APAP 10-325 MG TABLET ONE (03:58)
[2019-08-25] MEDS ORDERED: ONDANSETRON ODT 4 MG TAB.RAPDIS ONE (03:58)
[2019-08-25] MEDS ORDERED: ASPIRIN 81 MG TAB.CHEW ONE (03:58)
[2019-08-25] MEDS ORDERED: HYDROCODONE/APAP 10-325 MG TABLET PO ONE (04:00)
[2019-08-25] MEDS ORDERED: ONDANSETRON ODT 4 MG TAB.RAPDIS SL ONE (04:00)
[2019-08-25] MEDS ORDERED: ASPIRIN 81 MG TAB.CHEW PO ONE (04:00)
--- NOTE | 2019-08-25 04:10 | NUR ---
Xray at bedside.
--- NOTE | 2019-08-25 04:14 | NUR ---
Pt provided urine sample, sent to lab.
--- NOTE | 2019-08-25 04:20 | NUR ---
Pt out of ER for CT.
[2019-08-25 04:21] LABS: BASOPHILS % (AUTO) 0.5 % (0.0-2.0); EOSINOPHILS # (AUTO) 0.3 K/uL (0.0-0.7); EOSINOPHILS % (AUTO) 3.3 % (0.0-7.0); HEMATOCRIT 41.4 % (31.2-41.9); HEMOGLOBIN 13.8 g/dL (10.9-14.3); LYMPHOCYTES # (AUTO) 1.4 K/uL (20.0-40.0); LYMPHOCYTES % (AUTO) 17.1 % (20.5-51.5); MEAN CORPUSCULAR HEMOGLOBIN 29.2 uug (24.7-32.8); MEAN CORPUSCULAR HGB CONC 33 g/dL (32.3-35.6); MEAN CORPUSCULAR VOLUME 87.9 fL (75.5-95.3); MONOCYTES # (AUTO) 0.5 K/uL (2.0-10.0); MONOCYTES % (AUTO) 6.7 % (0.0-11.0); NEUTROPHILS # (AUTO) 5.9 K/uL (1.8-8.9); NEUTROPHILS % (AUTO) 72.4 % (38.5-71.5); PLATELET COUNT (AUTO) 92 K/uL (179-408); RED BLOOD CELL COUNT(AUTO) 4.71 MIL/uL (3.63-4.92); WHITE BLOOD COUNT (AUTO) 8.2 K/uL (3.8-11.8)
[2019-08-25 04:29] LABS: *BILIRUBIN,URIN NEGATIVE (NEGATIVE); *CLARITY,URINE CLEAR (CLEAR); *COLOR,URINE YELLOW (YELLOW); *KETONES,URINE NEGATIVE (NEGATIVE); *UROBILINOGEN,URINE 0.2 E.U./dl (NORMAL); LEUKOCYTE ESTERASE ,URINE NEGATIVE (NEGATIVE); NITRITE, URINE NEGATIVE (NEGATIVE); UGLUCOSE NEGATIVE (NEGATIVE)
[2019-08-25 04:30] LABS: CREATININE 1.1 mg/dL (0.6-1.3); POTASSIUM 3.4 mmol/L (3.5-5.1)
--- NOTE | 2019-08-25 04:32 | NUR ---
Pt back to ER from CT.
[2019-08-25 04:39] LABS: *BLOOD, URINE TRACE (NEGATIVE)
[2019-08-25 04:41] LABS: BACTERIA,URINE NONE SEEN /HPF (NONE SEEN); RBC,URINE 0-3 /HPF (0-3); SQUAMOUS EPITHELIAL CELL,UR MODERATE /HPF (NONE SEEN); WBC,URINE 0-3 /HPF (0-3)
[2019-08-25 04:42] LABS: BILIRUBIN,DIRECT 0.1 mg/dL (0.0-0.2); BILIRUBIN,TOTAL 0.4 mg/dL (0.2-1.0); TOTAL PROTEIN, SERUM 7.2 g/dL (6.4-8.2)
[2019-08-25 04:48] LABS: *AMPHETAMINE, URINE NEGATIVE (NEGATIVE); *BARBITURATE, URINE NEGATIVE (NEGATIVE); *CANNABINOID, URINE NEGATIVE (NEGATIVE); *COCCAINE, URINE NEGATIVE (NEGATIVE); *OPIATE, URINE NEGATIVE (NEGATIVE); *PHENCYCLIDINE SCREEN,URINE NEGATIVE (NEGATIVE)
[2019-08-25] MEDS ORDERED: POTASSIUM CHLORIDE 20 MEQ TAB.PRT.SR ONE (05:22)
[2019-08-25] MEDS ORDERED: FUROSEMIDE 20 MG TABLET ONE (05:22)
[2019-08-25] MEDS ORDERED: FUROSEMIDE 20 MG TABLET PO ONE (05:30)
[2019-08-25] MEDS ORDERED: POTASSIUM CHLORIDE 20 MEQ TAB.PRT.SR PO ONE (05:30)
--- NOTE | 2019-08-25 06:51 | NUR ---
Patient discharged to home in stable conditon. Written and verbal after care instructions given. Patient verbalizes understanding of instructions. Pt ambulated out of ER with steady gait, no acute signs of distress, VSS, all belongings taken.
[2019-08-25 06:58] VITALS: BP 131/76
== END 2019-08-25 06:58 | disposition home or self-care (01) ==
LOC: ER 03:38
DX: F45.0 Somatization disorder (principal); R51 Headache; R60.9 Edema, unspecified; R07.9 Chest pain, unspecified; E11.65 Type 2 diabetes mellitus with hyperglycemia; R04.0 Epistaxis; I10 Essential (primary) hypertension; K21.9 Gastro-esophageal reflux disease without esophagitis; F41.9 Anxiety disorder, unspecified; Z90.49 Acquired absence of other specified parts of digestive tract; Z90.710 Acquired absence of both cervix and uterus; Z90.89 Acquired absence of other organs; Z88.1 Allergy status to other antibiotic agents; Z88.5 Allergy status to narcotic agent; Z87.891 Personal history of nicotine dependence; Z79.4 Long term (current) use of insulin; Z79.899 Other long term (current) drug therapy
CPT/HCPCS: 36415; 70030-TC; 70450; 71045; 80307; 85025; 93005; A4663; Q0162

== ENCOUNTER 2020-01-01 18:22 | Emergency (ER) | payer OTHER ==
[~2020-01-01] VITALS: Ht 165.1 cm; Wt 94.8 kg
--- NOTE | 2020-01-01 18:31 | NUR ---
Patient is AOx4, speaking in complete sentences, speech is clear. Patient is able to follow /comprehend directions. Gait is stable. No cardiovascular distress noted. Rate and rhythm are regular. No CP. No respiratory distress noted. Respirations even & unlabored with symmetrical chest rise. No adventitious sounds noted. Chief complaint: C/O ABDOMINAL PAIN Patient denies Fever/Chills. No recent travel. - ETOH / -recreational drug use
--- NOTE | 2020-01-01 18:35 | NUR ---
ERMD AT BEDSIDE FOR HX AND PHYSICAL
[2020-01-01] MEDS ORDERED: FAMOTIDINE 20 MG TABLET PO ONE (18:45)
[2020-01-01] MEDS ORDERED: LIDOCAINE VISCUS 2% 15 ML UDC MM ONE (18:45)
[2020-01-01] MEDS ORDERED: DICYCLOMINE HCL LIQ 10 MG/5 ML UDC PO ONE (18:45)
[2020-01-01] MEDS ORDERED: MAG HYDROX/AL HYDROX/SIMETH 30 ML LIQUID UDC PO ONE (18:45)
[2020-01-01] MEDS ORDERED: MAG HYDROX/AL HYDROX/SIMETH 30 ML LIQUID UDC ONE (18:50)
[2020-01-01] MEDS ORDERED: FAMOTIDINE 20 MG TABLET ONE (18:50)
[2020-01-01] MEDS ORDERED: DICYCLOMINE HCL LIQ 10 MG/5 ML UDC ONE (18:51)
[2020-01-01] MEDS ORDERED: LIDOCAINE VISCUS 2% 15 ML UDC ONE (18:51)
--- NOTE | 2020-01-01 18:56 | NUR ---
PT ABLE TO TOLERATE PO MEDS ORDERED
--- NOTE | 2020-01-01 18:56 | NUR ---
PT BROUGHT DOWN TO CT VIA NIDIA ACCOMPANIE BY MELINA HARDEN
[2020-01-01 19:00] LABS: BASOPHILS # (AUTO) 0.1 K/uL (0.0-8.0); BASOPHILS % (AUTO) 0.6 % (0.0-2.0); EOSINOPHILS # (AUTO) 0.2 K/uL (0.0-0.7); HEMATOCRIT 43.2 % (31.2-41.9); HEMOGLOBIN 14.4 g/dL (10.9-14.3); LYMPHOCYTES # (AUTO) 1.4 K/uL (20.0-40.0); LYMPHOCYTES % (AUTO) 14.4 % (20.5-51.5); MEAN CORPUSCULAR HEMOGLOBIN 29.5 uug (24.7-32.8); MEAN CORPUSCULAR HGB CONC 33 g/dL (32.3-35.6); MEAN CORPUSCULAR VOLUME 88.7 fL (75.5-95.3); MONOCYTES # (AUTO) 0.8 K/uL (2.0-10.0); MONOCYTES % (AUTO) 8.5 % (0.0-11.0); NEUTROPHILS # (AUTO) 7.1 K/uL (1.8-8.9); NEUTROPHILS % (AUTO) 74.5 % (38.5-71.5); PLATELET COUNT (AUTO) 100 K/uL (179-408); RED BLOOD CELL COUNT(AUTO) 4.87 MIL/uL (3.63-4.92); WHITE BLOOD COUNT (AUTO) 9.5 K/uL (3.8-11.8)
[2020-01-01 19:03] LABS: POTASSIUM 3.5 mmol/L (3.5-5.1)
--- NOTE | 2020-01-01 19:05 | NUR ---
PT BACK FR CT VIA NIDIA HARDEN
--- NOTE | 2020-01-01 19:07 | NUR ---
HAND OFF AND SBAR GIVEN TO INCOMING [employer] TE[employer]ER RN
[2020-01-01 19:09] LABS: BILIRUBIN,DIRECT 0.2 mg/dL (0.0-0.2); BILIRUBIN,TOTAL 0.8 mg/dL (0.2-1.0); TOTAL PROTEIN, SERUM 7.3 g/dL (6.4-8.2)
--- NOTE | 2020-01-01 19:43 | NUR ---
Patient discharged to home in stable conditon. Written and verbal after care instructions given. Patient verbalizes understanding of instructions. Patient ambulating with steady gait. NAD noted
[2020-01-01 19:45] VITALS: BP 142/80
== END 2020-01-01 19:43 | disposition home or self-care (01) ==
LOC: ER 18:22
DX: R10.10 Upper abdominal pain, unspecified (principal); K76.0 Fatty (change of) liver, not elsewhere classified; I10 Essential (primary) hypertension; Z90.49 Acquired absence of other specified parts of digestive tract; Z90.710 Acquired absence of both cervix and uterus; K21.9 Gastro-esophageal reflux disease without esophagitis; J45.909 Unspecified asthma, uncomplicated; E11.9 Type 2 diabetes mellitus without complications; Z79.4 Long term (current) use of insulin; Z79.899 Other long term (current) drug therapy; E66.3 Overweight; Z87.820 Personal history of traumatic brain injury; F17.200 Nicotine dependence, unspecified, uncomplicated
CPT/HCPCS: 36415; 70030-TC; 83690; 85025; 93005; A4663

== ENCOUNTER 2020-05-13 17:53 | Emergency (ER) | payer OTHER ==
[~2020-05-13] VITALS: Ht 162.6 cm; Wt 95.3 kg
--- NOTE | 2020-05-13 17:53 | NUR ---
Patient ambulating with steady gait. A&O x4. c/o RLQ abd pain. Patient noted laughing, conversive, no limitation on ROM. no facial grimacing noted. patient immediately asks for "shot of dilaudid or demerol" upon making it into the gurney. Patient states pain has been going on x3-4 wks. Denies any N / V / D. Patient denies any bloody stool. Denies any CP / Blurred vision / CYR. Breathing even and unlabored. no cough or SOB noted. Speech is clear and able to make needs known / follow commands. safety precautions implemented.
--- NOTE | 2020-05-13 17:55 | NUR ---
Dr. Tolbert at bedside for MSE
[2020-05-13] MEDS ORDERED: INSU100V28 SQ (18:17)
--- NOTE | 2020-05-13 18:38 | NUR ---
Dr. Carranza at bedside for MSE
[2020-05-13 18:41] LABS: *BILIRUBIN,URIN NEGATIVE (NEGATIVE); *BLOOD, URINE NEGATIVE (NEGATIVE); *CLARITY,URINE CLEAR (CLEAR); *COLOR,URINE AMBER (YELLOW); *KETONES,URINE NEGATIVE (NEGATIVE); LEUKOCYTE ESTERASE ,URINE NEGATIVE (NEGATIVE); NITRITE, URINE NEGATIVE (NEGATIVE); PH,URINE 5.5 (5.0-8.0); UGLUCOSE 2+ (NEGATIVE)
[2020-05-13 18:49] LABS: BASOPHILS % (AUTO) 0.4 % (0.0-2.0); BILIRUBIN,DIRECT 0.2 mg/dL (0.0-0.2); BILIRUBIN,TOTAL 0.6 mg/dL (0.2-1.0); CREATININE 1.2 mg/dL (0.6-1.3); EOSINOPHILS # (AUTO) 0.2 K/uL (0.0-0.7); EOSINOPHILS % (AUTO) 2.4 % (0.0-7.0); HEMATOCRIT 41.9 % (31.2-41.9); HEMOGLOBIN 13.8 g/dL (10.9-14.3); LYMPHOCYTES # (AUTO) 1.3 K/uL (20.0-40.0); LYMPHOCYTES % (AUTO) 14.1 % (20.5-51.5); MEAN CORPUSCULAR HEMOGLOBIN 29.4 uug (24.7-32.8); MEAN CORPUSCULAR HGB CONC 33 g/dL (32.3-35.6); MONOCYTES # (AUTO) 0.7 K/uL (2.0-10.0); MONOCYTES % (AUTO) 7.2 % (0.0-11.0); NEUTROPHILS # (AUTO) 7.2 K/uL (1.8-8.9); NEUTROPHILS % (AUTO) 75.9 % (38.5-71.5); PLATELET COUNT (AUTO) 85 K/uL (179-408); POTASSIUM 3.6 mmol/L (3.5-5.1); RED BLOOD CELL COUNT(AUTO) 4.71 MIL/uL (3.63-4.92); TOTAL PROTEIN, SERUM 7.2 g/dL (6.4-8.2); WHITE BLOOD COUNT (AUTO) 9.5 K/uL (3.8-11.8)
--- NOTE | 2020-05-13 18:50 | NUR ---
Patient offered Tylenol for pain by Dr. Carranza. Patient declines to even try medication as "it does not work" per patient.
--- NOTE | 2020-05-13 18:57 | NUR ---
IV removed. Catheter intact and site benign. Pressure and 4x4 gauze applied to site. No bleeding noted. Patient does not wish to proceed with medical care recommended by Dr. Carranza. Patient given information related to possible complications, up to and including , which could occur as a result of leaving the hospital at this time. Patient verbalizes understanding of risks involved due to leaving against medical advice. Patient declines to sign AMA form. Dr. Carranza aware. Cosigned AMA form with Lore THORNTON
[2020-05-13 19:08] VITALS: BP 131/82
== END 2020-05-13 18:54 | disposition left against medical advice (07) ==
LOC: ER 17:55
DX: R10.30 Lower abdominal pain, unspecified (principal); E11.65 Type 2 diabetes mellitus with hyperglycemia; I10 Essential (primary) hypertension; J45.909 Unspecified asthma, uncomplicated; G89.29 Other chronic pain; M54.9 Dorsalgia, unspecified; F17.210 Nicotine dependence, cigarettes, uncomplicated; K21.9 Gastro-esophageal reflux disease without esophagitis; Z90.49 Acquired absence of other specified parts of digestive tract; Z90.710 Acquired absence of both cervix and uterus; Z79.4 Long term (current) use of insulin; Z79.899 Other long term (current) drug therapy
CPT/HCPCS: 36415; 83690; 85025; 85730; A4663

== ENCOUNTER 2023-08-05 19:06 | Emergency (ER) | payer OTHER ==
[~2023-08-05] VITALS: Ht 167.6 cm; Wt 97.5 kg
[~2023-08-05 19:06] MED LIST changes: +INSU100V28 SQ; -INSULIN ISOPHANE 100 UNIT/ML SQ; -PANT40TA4 PO
[2023-08-05] MEDS ORDERED: ONDA4TAB5 PO (20:02)
[2023-08-05] MEDS ORDERED: ONDANSETRON ODT 4 MG TAB.RAPDIS ONE (20:14)
[2023-08-05] MEDS ORDERED: ONDANSETRON ODT 4 MG TAB.RAPDIS SL ONE (20:15)
[2023-08-05 20:25] VITALS: BP 110/68; TEMP 98.3; O2SAT 100
== END 2023-08-05 20:26 | disposition home or self-care (01) ==
LOC: ER 19:09
DX: H92.03 Otalgia, bilateral (principal); R11.0 Nausea; I10 Essential (primary) hypertension; J45.909 Unspecified asthma, uncomplicated; K21.9 Gastro-esophageal reflux disease without esophagitis; E11.9 Type 2 diabetes mellitus without complications; G89.29 Other chronic pain; M54.9 Dorsalgia, unspecified; Z90.49 Acquired absence of other specified parts of digestive tract; Z90.89 Acquired absence of other organs; Z90.710 Acquired absence of both cervix and uterus; Z87.891 Personal history of nicotine dependence; Z88.1 Allergy status to other antibiotic agents; Z88.5 Allergy status to narcotic agent; Z79.4 Long term (current) use of insulin; Z79.899 Other long term (current) drug therapy
CPT/HCPCS: A4606; A4663; Q0162

== ENCOUNTER 2025-08-23 12:53 | Inpatient (IN) | payer OTHER ==
[~2025-08-23] VITALS: Ht 167.6 cm; Wt 89.9 kg
[~2025-08-23 12:53] MED LIST changes: +LACT10SO58 PO; +ONDA4TAB5 PO; +RIFA550T PO
[2025-08-23 15:09] LABS: PLATELET COUNT (AUTO) 51 K/uL (179-408); RED BLOOD CELL COUNT(AUTO) 3.73 MIL/uL (3.63-4.92); RED CELL DISTRIBUTION WIDTH 16.1 % (12.3-17.7); WHITE BLOOD COUNT (AUTO) 4.5 K/uL (3.8-11.8)
[2025-08-23 15:17] LABS: CREATININE 1.6 mg/dL (0.6-1.3); SODIUM SERUM 136 mmol/L (136-145); UREA NITROGEN, BLOOD 24 mg/dL (7-18)
[2025-08-23 15:20] LABS: *BILIRUBIN,URIN NEGATIVE (NEGATIVE); *BLOOD, URINE NEGATIVE (NEGATIVE); *CLARITY,URINE CLEAR (CLEAR); *COLOR,URINE DARK YELLOW (YELLOW); *KETONES,URINE NEGATIVE (NEGATIVE); *PROTEIN,URINE NEGATIVE (NEGATIVE); *UROBILINOGEN,URINE 4.0 E.U./dl (NORMAL); LEUKOCYTE ESTERASE ,URINE NEGATIVE (NEGATIVE); NITRITE, URINE NEGATIVE (NEGATIVE); UGLUCOSE NEGATIVE (NEGATIVE)
[2025-08-23 15:22] LABS: ASPARTATE AMINOTRANSFERASE 44 U/L (15-37); TOTAL PROTEIN, SERUM 6.4 g/dL (6.4-8.2)
[2025-08-23 15:31] LABS: SQUAMOUS EPITHELIAL CELL,UR MODERATE /HPF (NONE SEEN)
[2025-08-23 15:32] LABS: *AMPHETAMINE, URINE NEGATIVE (NEGATIVE); *BARBITURATE, URINE NEGATIVE (NEGATIVE); *BENZODIAZEPINE, URINE NEGATIVE (NEGATIVE); *CANNABINOID, URINE NEGATIVE (NEGATIVE); *COCCAINE, URINE NEGATIVE (NEGATIVE); *OPIATE, URINE NEGATIVE (NEGATIVE); *PHENCYCLIDINE SCREEN,URINE NEGATIVE (NEGATIVE); FENTANYL, URINE NEGATIVE (NEGATIVE)
[2025-08-23 16:19] LABS: BAND % (MANUAL) 1 % (0-10); EOSINOPHILS % (MANUAL) 3 % (0-8); LYMPHOCYTES % (MANUAL) 8 % (20-40); MONOCYTES % (MANUAL) 9 % (2-10); NEUTROPHILS % (MANUAL) 79 % (42-75); PLATELET ESTIMATE DECREASED
[2025-08-23] MEDS ORDERED: LIDOCAINE HCL 1% 20 ML VIAL ONE (16:34)
[2025-08-23] MEDS ORDERED: ONDANSETRON 4 MG/2 ML VIAL ONE (16:59)
[2025-08-23] MEDS ORDERED: HYDROMORPHONE 1 MG/1 ML DISP.SYRIN ONE (16:59)
[2025-08-23] MEDS: HYDROMORPHONE 1 MG/1 ML DISP.SYRIN IV ONE (17:04)
[2025-08-23] MEDS: ONDANSETRON 4 MG/2 ML VIAL IV ONE (17:04)
[2025-08-23 19:00] VITALS: BP 123/73
[2025-08-23 19:08] LABS: HIV-1/2 ANTIBODY NON REACTIVE (NONREACTIVE)
[2025-08-23] MEDS ORDERED: METOCLOPRAMIDE HCL 10 MG TABLET ONE (19:29)
[2025-08-23] MEDS: METOCLOPRAMIDE HCL 10 MG TABLET PO ONE (19:32)
[2025-08-23 20:45] VITALS: BP 119/67; TEMP 97.6; O2SAT 100
[2025-08-23] MEDS ORDERED: REMEDY ESSENTIAL ZINC PASTE 113 GM TP PRN (22:30)
[2025-08-23] MEDS ORDERED: ACETAMINOPHEN 325 MG TABLET PO PRN (22:30)
[2025-08-23] MEDS ORDERED: DEXTROSE 50% 50 ML DISP.SYRIN IV PRN (23:00)
[2025-08-24 04:22] VITALS: BP 130/69; TEMP 97.8; O2SAT 99
[2025-08-24] MEDS: PANTOPRAZOLE SODIUM 40 MG TABLET.DR PO SCH (06:45)
[2025-08-24] MEDS: ONDANSETRON HCL 4 MG TABLET PO PRN (06:48)
[2025-08-24] MEDS: BLOOD SUGAR DIAGNOSTIC 1 EACH STRIP VI SCH (06:51)
[2025-08-24 07:42] VITALS: BP 104/52; TEMP 98; O2SAT 98
[2025-08-24 07:54] LABS: RED BLOOD CELL COUNT(AUTO) 3.46 MIL/uL (3.63-4.92); RED CELL DISTRIBUTION WIDTH 15.8 % (12.3-17.7); WHITE BLOOD COUNT (AUTO) 4.3 K/uL (3.8-11.8)
[2025-08-24 07:57] LABS: ASPARTATE AMINOTRANSFERASE 45.0 U/L (15-37); CREATININE 1.5 mg/dL (0.6-1.3); SODIUM SERUM 134.0 mmol/L (136-145); TOTAL PROTEIN, SERUM 6.0 g/dL (6.4-8.2); UREA NITROGEN, BLOOD 24.0 mg/dL (7-18)
[2025-08-24 08:07] LABS: PLATELET COUNT (AUTO) 46 K/uL (179-408)
[2025-08-24] MEDS: LACTULOSE 20 G/30 ML LIQUID UDC PO SCH (08:38)
[2025-08-24] MEDS: AMLODIPINE 10 MG TABLET PO SCH (08:39)
[2025-08-24] MEDS: MONTELUKAST SODIUM 10 MG TABLET PO SCH (08:39)
[2025-08-24] MEDS: ATENOLOL 50 MG TABLET PO SCH (08:39)
[2025-08-24 09:33] LABS: EOSINOPHILS % (MANUAL) 3 % (0-8); MONOCYTES % (MANUAL) 8 % (2-10); NEUTROPHILS % (MANUAL) 77 % (42-75)
[2025-08-24 09:34] LABS: LYMPHOCYTES % (MANUAL) 12 % (20-40); PLATELET ESTIMATE DECREASED
[2025-08-24] MEDS ORDERED: FURO20TA4 PO (11:31)
[2025-08-24] MEDS ORDERED: SPIR50TA PO (11:32)
[2025-08-24] MEDS ORDERED: CETI-194 PO (11:33)
[2025-08-24] MEDS: RIFAXIMIN 550 MG TABLET PO SCH (12:00)
[2025-08-24] MEDS: INSULIN REGULAR, HUMAN 1000 UNIT/10 ML VIAL SQ PRN (12:03)
[2025-08-24 13:00] VITALS: BP 117/92; TEMP 98.1; O2SAT 99
[2025-08-24 16:00] VITALS: BP 142/62; TEMP 97.6; O2SAT 99
[2025-08-24 19:03] VITALS: BP 146/73; TEMP 98.4; O2SAT 98
[2025-08-24] MEDS: GUAIFENESIN/DEXTROMETHORPHAN 5 ML UDC PO PRN (21:52)
[2025-08-25] MEDS: HYDROMORPHONE 1 MG/1 ML DISP.SYRIN IV PRN (01:04)
[2025-08-25 05:03] VITALS: BP 138/72; TEMP 97.9; O2SAT 98
[2025-08-25 07:49] LABS: RED BLOOD CELL COUNT(AUTO) 3.45 MIL/uL (3.63-4.92); RED CELL DISTRIBUTION WIDTH 15.6 % (12.3-17.7); WHITE BLOOD COUNT (AUTO) 6.0 K/uL (3.8-11.8)
[2025-08-25 08:03] LABS: PLATELET COUNT (AUTO) 43 K/uL (179-408)
[2025-08-25 08:09] LABS: ASPARTATE AMINOTRANSFERASE 36.0 U/L (15-37); CREATINE KINASE, TOTAL 71.0 U/L (26-192); CREATININE 1.4 mg/dL (0.6-1.3); SODIUM SERUM 136.0 mmol/L (136-145); TOTAL PROTEIN, SERUM 5.6 g/dL (6.4-8.2); UREA NITROGEN, BLOOD 23.0 mg/dL (7-18)
[2025-08-25 08:54] LABS: LYMPHOCYTES % (MANUAL) 9 % (20-40); MONOCYTES % (MANUAL) 12 % (2-10); NEUTROPHILS % (MANUAL) 75 % (42-75); PLATELET ESTIMATE DECREASED
[2025-08-25 11:30] VITALS: BP 138/73; TEMP 98; O2SAT 98
[2025-08-25] MEDS ORDERED: AMLO10TA59 PO (11:51)
[2025-08-25] MEDS ORDERED: ATEN50TA PO (11:51)
[2025-08-25] MEDS ORDERED: LACT10SO58 PO (11:51)
[2025-08-25] MEDS ORDERED: SPIR50TA5 PO (11:51)
[2025-08-25] MEDS ORDERED: MONT10TA33 PO (11:51)
[2025-08-25] MEDS ORDERED: RIFA550T PO (11:51)
[2025-08-25 16:00] VITALS: BP 148/67; TEMP 97.7; O2SAT 97
[2025-08-25] MEDS ORDERED: INSULIN REGULAR, HUMAN 1000 UNIT/10 ML VIAL SQ SCH (16:30)
[2025-08-25 20:10] LABS: HEPATITIS C VIRUS ANTIBODY Non Reactive (Non Reactive)
[2025-08-26 08:11] LABS: PTH, INTACT 30 pg/mL (15-65)
[2025-08-26] MEDS ORDERED: FUROSEMIDE 20 MG TABLET PO SCH (09:00)
[2025-08-26] MEDS ORDERED: SPIRONOLACTONE 50 MG TABLET PO SCH (09:00)
[2025-08-26] MEDS ORDERED: CETIRIZINE HCL 10 MG TABLET PO SCH (09:00)
[2025-08-26] MEDS ORDERED: LIDOCAINE HCL 1% 20 ML VIAL IJ PRN (17:15)
== END 2025-08-25 16:30 | disposition home or self-care (01) ==
LOC: ER 12:58 → TELE3 19:51 → MEDSURG3 22:47
PROVIDERS: ADMIT Nurse Practitioner Acute Care; ATTEND Nurse Practitioner Acute Care
DX: K74.60 Unspecified cirrhosis of liver (principal); R18.8 Other ascites; Z59.02 Unsheltered homelessness; L03.031 Cellulitis of right toe; E11.22 Type 2 diabetes mellitus with diabetic chronic kidney disease; D69.6 Thrombocytopenia, unspecified; E87.1 Hypo-osmolality and hyponatremia; K76.6 Portal hypertension; J44.89 Other specified chronic obstructive pulmonary disease; I12.9 Hypertensive chronic kidney disease with stage 1 through stage 4 chronic kidney disease, or unspecified chronic kidney disease; N18.9 Chronic kidney disease, unspecified; K21.9 Gastro-esophageal reflux disease without esophagitis; E78.5 Hyperlipidemia, unspecified; Z90.710 Acquired absence of both cervix and uterus; Z90.49 Acquired absence of other specified parts of digestive tract; G89.29 Other chronic pain; M25.562 Pain in left knee; M25.561 Pain in right knee; Z86.19 Personal history of other infectious and parasitic diseases; Z87.820 Personal history of traumatic brain injury; Z88.1 Allergy status to other antibiotic agents; Z88.5 Allergy status to narcotic agent; Z79.4 Long term (current) use of insulin; G89.18 Other acute postprocedural pain; M54.30 Sciatica, unspecified side; F43.10 Post-traumatic stress disorder, unspecified; F41.9 Anxiety disorder, unspecified; M15.9 Polyosteoarthritis, unspecified; Z79.899 Other long term (current) drug therapy
CPT/HCPCS: 36415; 70030-TC; 71045; 76705; 76775; 83605; 83735; 83970; 84100; 84155; 84165; 84443; 84484; 85730; 86803; 87040; 87536; 87806; G0378; J1171; J1815; J2405; J3490; J8597; Q0162

== ENCOUNTER 2025-09-18 18:20 | Inpatient (IN) | payer OTHER ==
[~2025-09-18] VITALS: Ht 167.6 cm; Wt 92.5 kg
[~2025-09-18 18:20] MED LIST changes: -AMLO10TA4 PO; +AMLO10TA59 PO; +CETI-194 PO; -ESZO2TAB22 PO; +FURO20TA4 PO; +MONT-41 PO; -MONT10TA22 PO; -ONDA4TAB5 PO; +SPIR50TA PO; +SPIR50TA5 PO
[2025-09-18 19:02] LABS: RED BLOOD CELL COUNT(AUTO) 3.46 MIL/uL (3.63-4.92); RED CELL DISTRIBUTION WIDTH 16.6 % (12.3-17.7); WHITE BLOOD COUNT (AUTO) 3.0 K/uL (3.8-11.8)
[2025-09-18 19:17] LABS: CREATININE 1.1 mg/dL (0.6-1.3); PLATELET COUNT (AUTO) 37 K/uL (179-408); SODIUM SERUM 135.0 mmol/L (136-145); UREA NITROGEN, BLOOD 13.0 mg/dL (7-18)
[2025-09-18 19:23] LABS: ASPARTATE AMINOTRANSFERASE 39.0 U/L (15-37); TOTAL PROTEIN, SERUM 6.5 g/dL (6.4-8.2)
[2025-09-18] MEDS ORDERED: CEFTRIAXONE /D5W 50ML IVPB **ER PYXIS IV ONE (19:41)
[2025-09-18 19:49] LABS: EOSINOPHILS % (MANUAL) 10 % (0-8); LYMPHOCYTES % (MANUAL) 7 % (20-40); MONOCYTES % (MANUAL) 7 % (2-10); NEUTROPHILS % (MANUAL) 76 % (42-75); PLATELET ESTIMATE MARKED DECREASED
[2025-09-18 22:34] VITALS: BP 134/69
[2025-09-19] VITALS (8 sets, daily range): BP systolic 126–152; BP diastolic 64–74; TEMP 98.2–98.7; O2SAT 95–99
[2025-09-19] MEDS ORDERED: ONDANSETRON 4 MG/2 ML VIAL IV PRN (05:00)
[2025-09-19] MEDS ORDERED: DEXTROSE 50% 50 ML DISP.SYRIN IV PRN ×2 (05:00→15:00)
[2025-09-19] MEDS ORDERED: MAGNESIUM HYDROXIDE 30 ML LIQUID UDC PO PRN (05:00)
[2025-09-19] MEDS ORDERED: ACETAMINOPHEN 325 MG TABLET PO PRN (05:00)
[2025-09-19] MEDS: LACTULOSE 20 G/30 ML LIQUID UDC PO SCH (05:46)
[2025-09-19] MEDS: BLOOD SUGAR DIAGNOSTIC 1 EACH STRIP VI SCH ×2 (05:46→17:06)
[2025-09-19] MEDS: SPIRONOLACTONE 50 MG TABLET PO SCH (08:53)
[2025-09-19] MEDS: FUROSEMIDE 20 MG TABLET PO SCH (08:54)
[2025-09-19] MEDS: MONTELUKAST SODIUM 10 MG TABLET PO SCH (08:56)
[2025-09-19] MEDS: AMLODIPINE 10 MG TABLET PO SCH (08:56)
[2025-09-19] MEDS: CETIRIZINE HCL 10 MG TABLET PO SCH (08:57)
[2025-09-19] MEDS: RIFAXIMIN 550 MG TABLET PO SCH (08:57)
[2025-09-19] MEDS: ATENOLOL 50 MG TABLET PO SCH (08:57)
[2025-09-19] MEDS: INSULIN REGULAR, HUMAN 1000 UNIT/10 ML VIAL SQ PRN ×2 (12:17→17:07)
[2025-09-19] MEDS: BENZOCAINE/MENTH/CETYLPYRD LOZENGE MM PRN (16:11)
== END 2025-09-19 18:50 | disposition left against medical advice (07) ==
LOC: ER 18:20 → MEDSURG3 22:50
PROVIDERS: ADMIT Nurse Practitioner Acute Care
PROC: 30233R1 Transfusion of Nonautologous Platelets into Peripheral Vein, Percutaneous Approach (ICD-10-PCS; principal; 2025-09-19)
DX: K74.60 Unspecified cirrhosis of liver (principal); D61.818 Other pancytopenia; D68.4 Acquired coagulation factor deficiency; D69.6 Thrombocytopenia, unspecified; J45.909 Unspecified asthma, uncomplicated; E11.9 Type 2 diabetes mellitus without complications; R18.8 Other ascites; Z87.891 Personal history of nicotine dependence; F43.10 Post-traumatic stress disorder, unspecified; Z59.02 Unsheltered homelessness; F41.9 Anxiety disorder, unspecified; E87.1 Hypo-osmolality and hyponatremia; Z90.710 Acquired absence of both cervix and uterus; Z87.820 Personal history of traumatic brain injury; Z90.49 Acquired absence of other specified parts of digestive tract; Z88.1 Allergy status to other antibiotic agents; Z88.5 Allergy status to narcotic agent; G89.29 Other chronic pain; M54.50 Low back pain, unspecified; Z53.29 Procedure and treatment not carried out because of patient's decision for other reasons; Z86.19 Personal history of other infectious and parasitic diseases; Z79.4 Long term (current) use of insulin; Z79.899 Other long term (current) drug therapy
CPT/HCPCS: 36415; 70030-TC; 71045; 83690; 85610; 86850; 86870; 86900; 86901; 87040; A4663; G0378; J0696; J1815; P9035

== ENCOUNTER 2025-09-19 23:05 | Inpatient (IN) | payer OTHER ==
[~2025-09-19] VITALS: Ht 167.6 cm; Wt 97.1 kg
[2025-09-20 00:30] LABS: CREATININE 0.9 mg/dL (0.6-1.3); SODIUM SERUM 132.0 mmol/L (136-145); UREA NITROGEN, BLOOD 16.0 mg/dL (7-18)
[2025-09-20 00:36] LABS: ASPARTATE AMINOTRANSFERASE 38.0 U/L (15-37); TOTAL PROTEIN, SERUM 6.3 g/dL (6.4-8.2)
[2025-09-20 01:01] LABS: RED BLOOD CELL COUNT(AUTO) 3.24 MIL/uL (3.63-4.92); RED CELL DISTRIBUTION WIDTH 16.6 % (12.3-17.7); WHITE BLOOD COUNT (AUTO) 3.1 K/uL (3.8-11.8)
[2025-09-20 01:04] LABS: PLATELET COUNT (AUTO) 38 K/uL (179-408)
[2025-09-20] MEDS ORDERED: ACETAMINOPHEN 325 MG TABLET PO PRN (01:30)
[2025-09-20 01:36] LABS: EOSINOPHILS % (MANUAL) 11 % (0-8); LYMPHOCYTES % (MANUAL) 11 % (20-40); MONOCYTES % (MANUAL) 9 % (2-10); NEUTROPHILS % (MANUAL) 69 % (42-75); PLATELET ESTIMATE MARKED DECREASED
[2025-09-20 02:32] VITALS: BP 156/81
[2025-09-20 05:34] VITALS: BP 126/65; TEMP 97.4; O2SAT 95
[2025-09-20] MEDS ORDERED: HYDROCORTISONE 1% CREAM 30 GM TUBE TP PRN (05:45)
[2025-09-20] MEDS: FUROSEMIDE 20 MG TABLET PO SCH (08:40)
[2025-09-20] MEDS: SPIRONOLACTONE 50 MG TABLET PO SCH (08:40)
[2025-09-20] MEDS ORDERED: LORAZEPAM 0.5 MG TABLET PO PRN (15:30)
== END 2025-09-20 16:15 | disposition left against medical advice (07) ==
LOC: ER 23:05 → MEDSURG3 09-20 03:36
PROVIDERS: ADMIT Nurse Practitioner Acute Care
DX: K74.60 Unspecified cirrhosis of liver (principal); D61.818 Other pancytopenia; R18.8 Other ascites; J45.909 Unspecified asthma, uncomplicated; K76.6 Portal hypertension; Z53.29 Procedure and treatment not carried out because of patient's decision for other reasons; Z59.01 Sheltered homelessness; G89.29 Other chronic pain; Z87.820 Personal history of traumatic brain injury; F43.10 Post-traumatic stress disorder, unspecified; F41.9 Anxiety disorder, unspecified; K21.9 Gastro-esophageal reflux disease without esophagitis; Z90.49 Acquired absence of other specified parts of digestive tract; Z90.710 Acquired absence of both cervix and uterus; Z87.891 Personal history of nicotine dependence; Z79.899 Other long term (current) drug therapy; E87.1 Hypo-osmolality and hyponatremia; K75.81 Nonalcoholic steatohepatitis (NASH); M54.32 Sciatica, left side; M54.31 Sciatica, right side; Z88.1 Allergy status to other antibiotic agents; M25.562 Pain in left knee; M25.561 Pain in right knee
CPT/HCPCS: 36415; 70030-TC; G0378